=== PATIENT | female | born 1980 | race Caucasian/White ===

== ENCOUNTER → 2017-08-01 | Outpatient (CLI) | payer BC ==
[2014-05-19 12:13] VITALS: BMI 28.9
[~2017-08-01] MED LIST: Benzocaine 60 ML TP; DOCU240C67 PO; IBU800 PO; IBUP800T37 PO; Lanolin TP; OXYC-866 PO; PREN-75 PO; TUCKS TP
--- NOTE | 2017-08-01 09:47 | RADIOLOGY IMAGING REPORT ---
FACILITY: [facility] PATIENT NAME: Alisa Lacy : 1980 MR: [id number] V: [id number] EXAM DATE: ORDERING PHYSICIAN: SON LORENZ TECHNOLOGIST: Location: [facility] Patient: Alisa Lacy : 1980 Visit/Account:[id number] Date of Sevice: 08/01/2017 Exam type: RIBS LEFT History: Left-sided rib nodule, painful with palpation Comparison: Two-view chest September 02, 2015. Findings: There is no evidence of left rib mass or left rib fracture. PA view the chest reveals no evidence of pulmonary consolidation or pleural effusion. The cardiac silhouette is normal IMPRESSION: 1. Unremarkable left rib series. Report Dictated By: Natasha Noonan MD at 08/01/2017 9:36 AM Report E-Signed By: Natasha Noonan MD at 08/01/2017 9:44 AM WSN:[email or web address]
== END ==
LOC: RAD 08:58
PROVIDERS: ATTEND Nurse Practitioner Family
DX: M95.4 Acquired deformity of chest and rib (principal)
CPT/HCPCS: 71100